=== PATIENT | male | born 1965 | race Caucasian/White ===

== ENCOUNTER → 2017-06-19 | Outpatient (CLI) | payer BC ==
--- NOTE | 2017-06-19 11:35 | DIAGNOSTIC IMAGING REPORT ---
RIGHT KNEE 4 OR MORE CLINICAL HISTORY: RIGHT KNEE PAIN Right COMPARISON STUDY: None. FINDINGS: Intramedullary shant within the right tibia with an old, healed fracture within the right fibula. There is mild cartilage space narrowing within the medial compartment of the right knee with small marginal osteophytes. No acute fracture or dislocation within the right or left knee. No significant knee effusion. Soft tissues are unremarkable. IMPRESSION: Mild osteoarthritis within the right knee and postoperative changes within the right lower leg. No acute fractures. Electronically signed by: Bishnu Bruce M.D. 06/19/2017 11:34 AM Dictated Date/Time: 06/19/2017 11:22 AM
== END | disposition home or self-care (01) ==
LOC: C.RDSM 11:39
PROVIDERS: ATTEND Family Medicine
DX: M25.561 Pain in right knee (principal)

== ENCOUNTER → 2017-09-18 | Outpatient (CLI) | payer BC ==
--- NOTE | 2017-09-18 12:05 | DIAGNOSTIC IMAGING REPORT ---
R LOWER EXT JOINT WITHOUT CLINICAL HISTORY: KNEE PAIN pain TECHNIQUE: MRI multi axial acquisition COMPARISON STUDY: None FINDINGS: Signal characteristics of the osseous structures are in general unremarkable. Metallic artifact from a pin of the proximal tibia is noted. There is a small joint effusion. Anterior and posterior cruciate ligaments are intact. Collateral ligaments are unremarkable. The lateral meniscus is unremarkable in overall general configuration. Medial joint compartment evaluation is first from metallic artifact. Nevertheless, there appears to be an intrasubstance tear of the mid and anterior aspect of the medial meniscus with slight mid and apical meniscal truncation. Lateral meniscus is unremarkable. IMPRESSION: 1. Intrameniscal tear mid and anterior aspect medial meniscus with focal mid meniscal apical truncation. 2. Small joint effusion. 3. Postoperative changes with metallic shant placement proximal tibia. The above report was generated using voice recognition software. It may contain grammatical, syntax or spelling errors. Electronically signed by: Jesus Carrillo M.D. 09/18/2017 12:04 PM Dictated Date/Time: 09/18/2017 12:00 PM
== END | disposition home or self-care (01) ==
LOC: C.MRI 10:22
PROVIDERS: ATTEND Family Medicine
DX: M25.561 Pain in right knee (principal); M25.461 Effusion, right knee; S83.241A Other tear of medial meniscus, current injury, right knee, initial encounter; X58.XXXA Exposure to other specified factors, initial encounter

== ENCOUNTER → 2017-09-22 | Outpatient (CLI) | payer BC | END | disposition home or self-care (01) | LOC: C.RDSM 14:28 | PROVIDERS: ATTEND Orthopaedic Surgery | DX: M25.561 Pain in right knee (principal); M25.562 Pain in left knee ==

== ENCOUNTER → 2017-09-26 | Outpatient (CLI) | payer BC ==
[2017-09-26 16:38] LABS: HEMATOCRIT 41.2 % (42-52); MEAN CELL VOLUME 89.4 fL (80-100); MEAN CORPUSCULAR HEMOGLOBIN 30.2 pg (25-34); MEAN CORPUSCULAR HGB CONC 33.7 g/dl (32-36); MEAN PLATELET VOLUME 9.6 fL (7.4-10.4); PLATELET COUNT 330 K/uL (130-400); RED BLOOD COUNT 4.61 M/uL (4.7-6.1); WHITE BLOOD COUNT 9.18 K/uL (4.8-10.8)
[2017-09-26 17:09] LABS: BLOOD UREA NITROGEN 18 mg/dl (7-18); BUN/CREATININE RATIO 17.6 (10-20); CALCIUM 8.9 mg/dl (8.5-10.1); CARBON DIOXIDE 31 mmol/L (21-32); CHLORIDE 102 mmol/L (98-107); CREATININE 1.01 mg/dl (0.60-1.40); GLUCOSE 93 mg/dl (70-99); POTASSIUM 4.1 mmol/L (3.5-5.1); SODIUM 137 mmol/L (136-145)
== END | disposition home or self-care (01) ==
LOC: C.LAB 15:58
PROVIDERS: ATTEND Physician Assistant
DX: Z01.818 Encounter for other preprocedural examination (principal); S83.241A Other tear of medial meniscus, current injury, right knee, initial encounter; X58.XXXA Exposure to other specified factors, initial encounter

== ENCOUNTER → 2017-10-02 | Day surgery (SDC) | payer BC ==
[2017-09-28 11:17] VITALS: Ht 182.9 cm; Wt 88.6 kg
[~2017-10-02] VITALS: Ht 182.9 cm; Wt 88.6 kg
[~2017-10-02] MED LIST: ATROPINE SULFATE 0.1 MG/ML 5ML SYR IV PRN; CLINDAMYCIN 900MG IV SCH; DEXAMETHASONE SOD INJ 4 MG/ML VIAL ONE; EpHEDrine SULFATE INJ 50 MG/ML AMP IV PRN; EpINEphrine HCL INJ 1 MG/ML 5ML SYRINGE ONE; FENTANYL CITRATE INJ 50 MCG/1 ML 2 ML VIAL IV PRN; FENTANYL CITRATE INJ 50 MCG/1 ML 2 ML VIAL ONE; HYDROmorphone INJ 0.5 MG/0.5 ML SYR IV PRN; HYDROmorphone INJ 0.5 MG/0.5 ML SYR ONE; IND/25 PO; LACTATED RINGER'S 1000ML 1,000 ML IV SCH; LIDO 2%/EPINEPHRINE 1:100000 20 ML VIAL INFIL ONE; LIDOCAINE HCL 2% 2 ML VIAL (20MG/ML) ONE; MIDAZOLAM HCL 1 MG/ML 2ML VIAL ONE; MoRPHine SULFATE 2 MG/ML CARP IV PRN; MoRPHine SULFATE 4 MG/ML 1 ML CARP\\VIAL IV PRN; ONDANSETRON INJ 2 MG/ML 2 ML VIAL IV PRN; ONDANSETRON INJ 2 MG/ML 2 ML VIAL ONE; OXYCODONE/ACETAMINOPHEN 5-325 TAB PO PRN; PROPOFOL IV EMULSION 10 MG/ML 20 ML VIAL IV ONE; ROPIVACAINE 0.5% 5 MG/ML 30 ML VIAL ONE; SODIUM CHLORIDE 0.9% 1000ML 1,000 ML IV SCH; VANCOMYCIN HCL 1000MG/20ML VIAL ONE; [UNRECOGNIZED DRUG - CODE]
--- NOTE | 2017-10-02 06:37 | History & Physical Bridge - [place] ---
H&P Re-Evaluation Bridge Note: I have examined the patient, reviewed the History & Physical and in the interval since the performance of the History & Physical I have noted the following changes of clinical significance: Patient developed a cramp in his left (nonoperative foot) which has made it more difficult to walk with crutches. Otherwise, no changes noted. We will plan on giving him a walker after surgery to assist in ambulation.
--- NOTE | 2017-10-02 08:10 | [facility] Post Operative Brief Note ---
Immediate Operative Summary Operative Date Oct 02, 2017. Pre-Operative Diagnosis Right Knee Medial Meniscus Tear; Synovitis; Effusion Post-Operative Diagnosis Same and lateral meniscus repair Procedure(s) Performed Right knee major synovectomy, partial medial meniscectomy, lateral meniscus repair Surgeon Dr. Lomas Four Horse Hitch Driver Surgeon(s) Dr. 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 Major synovectomy performed. Dexamethasone injected at conclusion of case. Degenerative medial meniscus tear debrided, unstable lateral meniscus tear repaired with one all inside Fastfix 360 Fluids (cc crystalloids) 1000 Specimens Right anterior knee synovitis Drains None Anesthesia General with local Complication(s) None Disposition Recovery Room / PACU
--- NOTE | 2017-10-02 08:21 | [facility] Operative Report ---
Operative Report Operative Date Oct 02, 2017. Pre-Operative Diagnosis Right Knee Medial Meniscus Tear; Synovitis; Effusion Post-Operative Diagnosis Same and lateral meniscus repair Procedure(s) Performed Right knee major synovectomy, partial medial meniscectomy, lateral meniscus repair Surgeon Dr. Lomas Auto Wrecker Surgeon(s) Dr. Oates; Chris Parsons PA-C Estimated Blood Loss Minimal Findings Extensive synovitis Fluids (cc crystalloids) 1000 Specimens Right anterior knee synovitis Complication(s) None Disposition Recovery Room / PACU I attest to the content of the Intraoperative Record and any orders documented therein. Any exceptions are noted below.
--- NOTE | 2017-10-02 08:28 | Discharge Instructions ---
Discharge Instructions Date of Service Oct 02, 2017. Admission Reason for Admission: Right Knee Medial Meniscus Tear, Synovitis, Effusi Discharge Discharge Diagnosis / Problem: Right knee medial meniscus tear, synovitis, effusion Discharge Goals Goal(s): Decrease discomfort, Improve function, Increase independence Activity Recommendations Activity Limitations: as noted below Lifting Limitations: until after follow-up appointment Exercise/Sports Limitations: until after follow-up appointment May Resume Sexual Activity: when tolerated Shower/Bathe: tomorrow, keep incision dry Driving or Machine Use: No driving until cleared by orthopedic surgeon Weightbearing Status: Right weightbearing (as tolerated with knee brace locked in extension for 6wk and aid of walker) . Instructions / Follow-Up Instructions / Follow-Up Post-operative Instructions Dear Patient and Family/Friends, Before you are discharged from the hospital, it is important to know what to expect when you get home after surgery. To that end, we have created this sheet of discharge instructions which covers many commonly asked questions. Make sure you go through this sheet in its entirety with your nurse before you are discharged. Please note that we will go over the specifics of your surgery and recovery when you return for your first post-operative visit. Sincerely, Dr. Lomas Pain Expect to be in a fair amount of pain after surgery. Remember, our goal is not to eliminate your pain, but to make it tolerable. It is a good idea to stay ahead of your pain by taking the medications you were prescribed once you get home. Typically, the pain starts improving 3-7 days after surgery. You should start weaning off the narcotic pain medication (oxycodone, hydrocodone, hydromorphone, morphine) as soon as your pain improves. Please call our office if your pain is not adequately controlled. Ice Ice your operative site at least 5 times a day for 15-30 minutes at a time. Make sure you have a thin cloth between the ice or cooling unit and your skin to prevent huynh bite. This is especially important if you received a nerve block. Continue icing your operative site for the first 5-7 days after surgery , then as needed. Diet/Nausea/Vomiting Start by drinking clear liquids and eating crackers. If you can tolerate this, then you may resume your normal diet. If you feel nauseated or vomit, take Zofran/ondansetron (if prescribed). Please call our office if you have intractable nausea or vomiting, or, if after hours, you may go to the Emergency Room for help. Constipation Constipation is a common side effect of narcotic pain medication. If you have not had a bowel movement within 2 days after surgery, we recommend purchasing an over the counter laxative such as Milk of Magnesia, Dulcolax, or Miralax from a local pharmacy, and taking it as instructed. Call our clinic if any questions. Slings and Braces If you were placed in a sling or brace, it must be worn at all times, including sleep. You may remove your sling or brace for physical therapy, home exercises , and showering. The length of time you will be in your brace and range of motion restrictions depends on what surgery you had; these details will be reviewed at your first post-operative appointment. Nerve block The anesthesia team sometimes places a nerve block to help with post-operative pain control. This results in significant numbness and inability to move the extremity. The nerve block usually wears off in 8-12 hours, but sometimes can last up to 24 hours. Please call our office if you are still unable to move your extremity after 24 hours, unless you received a pain pump to take home. Nerve blocks typically wear off quickly, so start taking pain medication as soon as you start feeling soreness near your surgical site. Weight bearing and Range of Motion. Do not bear any weight through your operative extremity immediately after surgery. If you had upper extremity surgery, do not lift anything with that arm. If you are in a knee brace, keep it locked in place until your follow-up. We will discuss your weight bearing, range of motion, and lifting restrictions in detail at your first post-operative appointment. Continuous Passive Motion (CPM) Machine If you were prescribed a CPM machine, it will start after your first post- operative appointment, at which time we will give you instructions on the range of motion settings and duration of treatment Physical therapy You will be given a prescription for physical therapy or occupational therapy at your first post-operative appointment. Typically, patients start therapy within 1 week of surgery Wound care and showering We will inspect your wound at your first post-operative visit, and may do a dressing change at that time. Most patients will be in a water-proof dressing that is removed 14 days after surgery. It is normal to see some dried blood on the dressing. Do not remove your dressing, paper strips or sutures yourself unless you are given permission. Showering is allowed the day after surgery. Do not scrub or remove any dressings. The wound should not be submerged underwater (i.e. in a bathtub or pool) until 4 weeks after surgery GINETTE stockings If you were given white stockings, these are to be worn at all times except to shower (on both legs) for the first 2 weeks after surgery. Driving You may not drive while taking narcotic pain medication or while in a cast, splint, sling or brace. You, the patient, need to make the final determination about when you are safe to drive, however, the earliest you may consider driving after surgery is below: Hand/Wrist/Elbow Surgery: 3 days Shoulder Surgery: 2 weeks Hip,/Knee/Ankle Surgery: 4 weeks Fracture repair: 6 weeks Return to Work Your return to work depends on what surgery was done and what type of work you do. Please bring any paperwork your employer needs completed to your first post -operative visit. Also, bring a description of your job duties, as this helps us to understand what risks you may face at work. Travel Avoid long distance travel (greater than 1 hour) in airplanes and cars for the first 6 weeks after surgery. If you must travel, you need to have a Doppler ultrasound done before you travel to rule out a blood clot in your legs. Follow-up You should have a follow-up appointment already scheduled 1-2 days after surgery. If not, please contact our office to make this appointment before you leave the hospital. When to call the office It is normal to have swelling and bruising in the limb that was operated on. This will improve with time. It is also normal to have fevers for the first 2 days after surgery. Reasons you should call your doctor include: Uncontrolled pain; Nausea, vomiting, or constipation that does not improve with medication; Fevers over 101.5, chills, sweats; Drainage or bleeding from the wound; Foul odor; Spreading areas of redness; Any other concerns Current Hospital Diet Patient's current hospital diet: Discharge Diet Recommended Diet: Regular Diet Procedures Procedures Performed: Right knee major synovectomy, partial medial meniscectomy, lateral meniscus repair Pending Studies Studies pending at discharge: yes List of pending studies: synovial sample Medical Emergencies . Who to Call and When: Medical Emergencies: If at any time you feel your situation is an emergency, please call 911 immediately. . Non-Emergent Contact Non-Emergency issues call your: Primary Care Provider Call Non-Emergent contact if: you have a fever, temperature is above 101.5, your pain is not controlled, your pain is worsening, wound has increased drainage, you have any medication questions . "Provider Documentation" section prepared by Alex Parsons. . VTE Core Measure Inpt VTE Proph given/why not?: Other Anticoagulation (Aspirin EC 81 mg), T.E.D. Kelsi MA Drug Monitoring Program Search Results: patient reviewed within database, no issues identified, see additional documentation
--- NOTE | 2017-10-02 08:54 | OPERATIVE REPORT ---
DATE OF OPERATION: 10/02/2017 PREOPERATIVE DIAGNOSES: Right knee medial meniscus tear and synovitis. POSTOPERATIVE DIAGNOSES: 1. 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 2. Right knee medial meniscus tear. 3. Right knee lateral meniscus tear. OPERATIONS PERFORMED: 1. Right knee major synovectomy. 2. Right knee synovial biopsy. 3. Right knee lateral meniscus repair. 4. Right knee partial medial meniscectomy. SURGEON: Rao Lomas MD ASSISTANTS: 1. Juventino Oates MD 2. Alex Parsons PA-C IV FLUIDS: 1000 mL crystalloid. ESTIMATED BLOOD LOSS: Minimal. IMPLANTS: One [employer] Fast-Fix 360 all-inside suturing device. DRAINS: None. SPECIMENS: Right knee anterior synovitis. COMPLICATIONS: None. INDICATIONS: Mr. Medel is a 51-year-old male with a history of trauma to his knee and subsequent issues with medial knee pain and swelling. An MRI shows a medial meniscus tear. His physical exam is consistent with medial meniscus tear with a medial-sided joint pain and positive Petty's test referable to medial aspect of the knee. He also has a large effusion and synovitis. Of note, he has no medical history of gout diagnosed. He did present to the operating room today, complaining of foot pain with some mild erythema near the great toe of the contralateral left foot consistent with gout with extreme pain and difficulty ambulating. Notably, he had a similar episode on the right foot, which subsequently resolved. He has been off of NSAIDs prior to surgery, which may have partially precipitated the condition on his left foot. I had a long discussion with him in clinic about the risks and benefits of surgery, alternatives to surgery and expected outcomes. After reviewing all these, he elected to proceed with surgery. All questions were answered. Informed consent was signed. OPERATIVE FINDINGS: 1. The undersurface of the patella showed diffuse grade 1 chondromalacia. 2. The medial and lateral gutters were free of any loose bodies. 3. The suprapatellar pouch showed diffuse synovitis. 4. The anterior compartment showed synovitis along the medial and lateral aspects of the fat pad as well as the ligamentum mucosum into the notch. His ACL and PCL were intact. 5. The medial compartment showed a degenerative medial meniscus tear extending from the body into the posterior horn. There was a grade 1 chondromalacia of the medial femoral condyle and grade 2 chondromalacia of the medial tibial plateau. 6. The lateral compartment showed an unstable meniscal capsular separation of the posterior horn of the medial meniscus with displacement of the meniscus with probing into the center of the knee. 7. There was a grade 1 chondromalacia of the lateral tibial plateau and lateral femoral condyle. DESCRIPTION OF THE OPERATION: The patient was identified in the preoperative holding area, where surgical site was marked. He was brought back to main operating room, where he was placed on the operating room table and general anesthesia was administered. All bony prominences were padded. Perioperative antibiotics were administered. He was prepped and draped in the normal sterile fashion. Prior to incision, a multidisciplinary timeout was called. All in the room were in agreement. We began by creating an anterolateral portal. He had significant synovitis in the suprapatellar pouch, so a superolateral outflow portal was created. A medial working portal was created under direct visualization. We then performed a diagnostic arthroscopy, revealing the above findings. Once a diagnostic arthroscopy was complete, a pituitary rongeur was used to obtain a biopsy of the synovium in the anterior compartment of the knee, which was sent for permanent section. Next, the curved Torpedo as well as the 50-degree CoolCut wand were used to perform a synovectomy of the anterior medial and lateral compartments as well as the suprapatellar pouch. The medial compartment was then entered and the medial meniscus tear was debrided with a curved Torpedo shaver back to a stable margin. Of note, there was a crystalline debris noted in the synovium within or adjacent to the meniscus as well as within the synovium. This was consistent with either chondrocalcinosis or gouty synovitis. We then moved to the lateral compartment. Again, there was some crystalline debris noted below the posterior horn of the medial meniscus, which was debrided. Probing of the lateral meniscus revealed an unstable posterior horn and lateral meniscus tear. This was therefore rasped with a ball spike rasp and a single Fast-Fix 360 was used to repair this in a horizontal mattress suture. At this point, the arthroscope was removed from the knee and all irrigation fluid was removed. Due to the amount of synovitis, I elected to inject his knee with 8 mg of dexamethasone for treatment of this synovitis. The remainder of the knee portals were injected with a total of 30 mL of Naropin. 10 mL of this went directly into the joint with dexamethasone. Portals were closed with 3-0 Monocryl sutures. Steri-Strips, 2 x 2s and Tegaderms were applied. He was placed in a compressive dressing. He was then placed in a hinged knee brace locked in full extension with range of motion set from 0-90 degrees. He was awoken from anesthesia and transferred to the recovery room in stable condition. POSTOPERATIVE COURSE: The patient will be discharged home from the recovery room. He will be weightbearing as tolerated with hinged knee brace locked in extension for the next 6 weeks. He will be allowed range of motion at 0-90 degrees in the next 6 weeks. He will be on a simple meniscus repair protocol physical therapy. He will return to physical therapy tomorrow for a recheck. We are going to put him on indomethacin postoperatively to treat his presumed gout both in this knee as well as in the contralateral foot in addition to a standard postoperative pain control measures. He will be on aspirin for DVT prophylaxis. I attest to the content of the Intraoperative Record and any orders documented therein. Any exceptions are noted below. RADHAD
[2017-10-02 09:10] VITALS: TEMP 36.7
--- NOTE | 2017-10-02 09:31 | Anesthesia Progress Nt - [facility] ---
Anesthesia Post Op Note Date & Time Oct 02, 2017 at 09:31 Vital Signs Pain Intensity: 3 Vital Signs Past 12 Hours Date Time Temp Pulse Resp B/P (MAP) Pulse Ox O2 Delivery O2 Flow Rate FiO2 10/02/17 09:10 36.7 86 18 137/79 (98) 94 Room Air 10/02/17 08:58 89 14 92 10/02/17 08:58 89 14 10/02/17 08:57 139/91 10/02/17 08:56 37.5 89 12 139/91 94 Room Air 10/02/17 08:55 140/103 10/02/17 08:53 86 17 90 10/02/17 08:53 87 17 10/02/17 08:52 89 15 10/02/17 08:52 89 15 92 10/02/17 08:50 146/88 10/02/17 08:47 92 19 92 10/02/17 08:47 92 19 10/02/17 08:46 92 17 10/02/17 08:46 92 17 93 10/02/17 08:45 141/90 10/02/17 08:41 87 16 96 10/02/17 08:41 88 16 10/02/17 08:40 137/87 10/02/17 08:36 82 16 10/02/17 08:36 80 16 97 10/02/17 08:35 81 16 10/02/17 08:35 80 16 137/88 96 10/02/17 08:30 89 16 143/90 97 10/02/17 08:30 88 16 10/02/17 08:25 86 23 146/95 98 10/02/17 08:25 86 23 10/02/17 08:21 152/93 10/02/17 08:20 37.0 88 16 152/93 97 Diffusion Mask 6 10/02/17 06:29 37.2 99 18 152/91 (111) 95 Room Air Notes Mental Status: alert / awake / arousable, participated in evaluation Pt Amnestic to Procedure: Yes Nausea / Vomiting: adequately controlled Pain: adequately controlled Airway Patency, RR, SpO2: stable & adequate BP & HR: stable & adequate Hydration State: stable & adequate Anesthetic Complications: no major complications apparent
[2017-10-02 10:42] VITALS: BP 133/83; PULSE 77; O2SAT 95
== END | disposition home or self-care (01) ==
LOC: X.SURG 06:10
PROVIDERS: ATTEND Orthopaedic Surgery
DX: S83.281A Other tear of lateral meniscus, current injury, right knee, initial encounter (principal); S83.241A Other tear of medial meniscus, current injury, right knee, initial encounter; M12.261 Villonodular synovitis (pigmented), right knee; X58.XXXA Exposure to other specified factors, initial encounter